=== PATIENT | male | born 1935 | race Caucasian/White ===

== ENCOUNTER 2023-09-11 18:09 | Inpatient (IN) ==
[~2023-09-11 18:09] MED LIST: Heparin 1,000 UNIT/ML 10 ml (10,000 UNITS) CATHLAB/DIALYSIS ONE; Heparin 2 UNITS/ML 1000 mls 3,000 ML IV ONE; Lidocaine 1% MPF 5 ML VIAL ONE; Midazolam 5 mg/5 ml VIAL 1 mg/ml 5 ml VIAL (5 mg) ONE; Rocuronium 50 mg VIAL 10 mg/ml 5 ml VIAL (50 mg) ONE; VERAPAMIL 2.5 MG/ML 2 ML VIAL ** 5 mg/2 ml ONE; fentaNYL 250 mcg/5 ml 50 MCG/ML 5 ml VIAL (250 MCG) ONE; nitroGLYCERIN DRIP 25,000 MCG/250 ML BTL ONE
[2023-09-11] MEDS ORDERED: Iohexol 350 (CONTRAST) 200 ML MDV IV ONE (18:40)
[2023-09-11] MEDS ORDERED: Bivalirudin 250 MG VIAL ONE ×2 (18:42→19:39)
[2023-09-11 18:46] LABS: ABS Monocytes 1.3 10^3/uL (0.0-1.1); ABS Neutrophils 13.2 10^3/uL (1.5-7.6); Hematocrit 33.5 % (38-53); Hemoglobin 11.4 g/dL (13.2-16.3); Lymphocyte % 6.3 %; Mean Corpuscular Hemoglobin 32.6 pg (27-33); Mean Corpuscular Hgb Conc 33.9 g/dL (31-36); Mean Corpuscular Volume 96.1 fL (80-97); Mean Platelet Volume 9.3 fL (7.5-11.2); Platelet Count 251 10^3/uL (150-450); Red Blood Count 3.49 10^6/uL (4.06-5.63); Red Cell Distribution Width 13.9 % (12-17); White Blood Count 15.5 10^3/uL (3.6-10.2)
[2023-09-11 19:06] LABS: Activated Partial Thrombo Time 189.9 seconds (26.0-38.0)
[2023-09-11 19:10] LABS: INR 1.06 (0.83-1.13)
[2023-09-11 19:17] LABS: High Sens Troponin Baseline > 24000 pg/mL (<20)
[2023-09-11 19:40] LABS: Magnesium 1.8 mg/dL (1.9-2.7)
[2023-09-11 19:47] LABS: Anion Gap 8 mmol/L (2-16); Blood Urea Nitrogen 19 mg/dL (6-24); CO2 Carbon Dioxide 22 mmol/L (22-32); Chloride 86 mmol/L (101-111); Creatinine, Serum 1.12 mg/dL (0.67-1.17); Glucose 125 mg/dL (70-100); Potassium 5.2 mmol/L (3.5-5.0); eGFR CKD-EPI 64.4 (>60)
[2023-09-11 19:48] LABS: ALT 32 U/L (7-52); AST 160 U/L (13-39); Albumin 4.1 g/dL (3.2-5.2); Albumin/Globulin Ratio 1.8 (1-3); Alkaline Phosphatase 75 U/L (35-149); Calcium 8.9 mg/dL (8.6-10.3); Globulin 2.3 g/dL (2-4); Sodium 116 mmol/L (135-145); Total Bilirubin 0.8 mg/dL (0.2-1.0); Total Protein 6.4 g/dL (6.4-8.9)
[2023-09-11] MEDS ORDERED: Iohexol 350 (CONTRAST) 100 ML PAK IV ONE (20:24)
[2023-09-11] MEDS ORDERED: Propofol 10 mg/ml 100 ML BTL 1,000 MG/100 ML BTL ONE (20:35)
[2023-09-11] MEDS ORDERED: Midazolam PREMIXBAG 1 MG/ML NS 100 ML IV ONE (20:35)
[2023-09-11] MEDS ORDERED: hydrALAZINE 20 mg/ml 1 ML Vial IV ONE (20:50)
[2023-09-11] MEDS ORDERED: Heparin DRIP 25,000 UNITS BAG 25,000 UNITS/250 ML BAG IV ONE (21:21)
[2023-09-11] MEDS ORDERED: Heparin 2 UNITS/ML 1000 mls 1,000 ML IV ONE (21:22)
[2023-09-11] MEDS ORDERED: fentaNYL 250 mcg/5 ml 50 MCG/ML 5 ml VIAL (250 MCG) ONE (21:47)
[2023-09-11 22:29] LABS: PCO2 Arterial 37 mmHg (35-45); PO2 Arterial 255 mmHg (80-100)
[2023-09-11] MEDS ORDERED: Atropine 0.1 MG/ML 10 ml SYR (1 mg) ONE (22:55)
[2023-09-11] MEDS: Heparin DRIP 25,000 UNITS BAG 25,000 UNITS/250 ML BAG IV SCH ×2 (23:16→23:47)
[2023-09-11] MEDS: Norepinephrine 4 MG/250mL D5W 4,000 MCG/250 ML BAG IV SCH (23:24)
[2023-09-11] MEDS: Propofol 10 mg/ml 100 ML BTL 1,000 MG/100 ML BTL IV SCH (23:24)
[2023-09-11] MEDS: Midazolam PREMIXBAG 1 MG/ML NS 100 ML IV SCH (23:26)
[2023-09-11] MEDS: Norepinephrine 4 MG/250mL D5W 4,000 MCG/250 ML BAG IV ONE (23:28)
[2023-09-11] MEDS ORDERED: Heparin 5000 UNITS/ML 1 mL VIAL IV SCH ×2 (23:45)
[2023-09-11 23:49] LABS: ABS Lymphocytes 0.7 10^3/uL (1.0-4.8); ABS Monocytes 1.2 10^3/uL (0.0-1.1); ABS Neutrophils 12.7 10^3/uL (1.5-7.6); ABS Nucleated RBC 0.01 10^3/ul; Hematocrit 30.3 % (38-53); Hemoglobin 10.3 g/dL (13.2-16.3); Lymphocyte % 4.8 %; Mean Corpuscular Hemoglobin 32.7 pg (27-33); Mean Corpuscular Hgb Conc 33.9 g/dL (31-36); Mean Corpuscular Volume 96.6 fL (80-97); Mean Platelet Volume 8.4 fL (7.5-11.2); Platelet Count 231 10^3/uL (150-450); Red Blood Count 3.13 10^6/uL (4.06-5.63); Red Cell Distribution Width 14.2 % (12-17); White Blood Count 14.6 10^3/uL (3.6-10.2)
[2023-09-12 00:37] LABS: Creatinine, Serum 1.06 mg/dL (0.67-1.17); eGFR CKD-EPI 68.8 (>60)
[2023-09-12 00:45] LABS: Creatinine, Serum 1.07 mg/dL (0.67-1.17); Magnesium 1.9 mg/dL (1.9-2.7); Potassium 4.4 mmol/L (3.5-5.0)
[2023-09-12] MEDS: Chlorhexidine MOUTHWASH 0.12% 15 ML UDC SWISH SPIT SCH (03:41)
[2023-09-12 06:03] LABS: Hematocrit 31.3 % (38-53); Hemoglobin 10.7 g/dL (13.2-16.3); Mean Corpuscular Hemoglobin 32.8 pg (27-33); Mean Corpuscular Hgb Conc 34.2 g/dL (31-36); Mean Platelet Volume 8.8 fL (7.5-11.2); Platelet Count 264 10^3/uL (150-450); Red Blood Count 3.26 10^6/uL (4.06-5.63); Red Cell Distribution Width 13.8 % (12-17); White Blood Count 19.5 10^3/uL (3.6-10.2)
[2023-09-12 06:19] LABS: Calcium 8.2 mg/dL (8.6-10.3); Creatinine, Serum 0.9 mg/dL (0.67-1.17); Magnesium 1.8 mg/dL (1.9-2.7); Potassium 4.5 mmol/L (3.5-5.0); eGFR CKD-EPI 83.7 (>60)
[2023-09-12 06:33] VITALS: BP 129/76
[2023-09-12 06:40] LABS: Osmolality Serum 255 mOsm/kg (275-295)
[2023-09-12 07:34] LABS: ABS Lymphocytes 0.8 10^3/uL (1.0-4.8); ABS Monocytes 1.9 10^3/uL (0.0-1.1); ABS Neutrophils 16.8 10^3/uL (1.5-7.6); ABS Nucleated RBC 0.01 10^3/ul; Nucleated Red Blood Cells % 0.1 %/100WBC (0.0-0.8)
[2023-09-12] MEDS: Magnesium Sulfate 2 gm BAG 2 GM/50 ML BAG IVPB ONE (08:23)
[2023-09-12] MEDS ORDERED: Heparin 2 UNITS/ML 1000 mls 1,000 ML IV ONE ×2 (08:56→09:19)
[2023-09-12] MEDS ORDERED: Iohexol 350 (CONTRAST) 100 ML PAK IV ONE (09:28)
== END 2023-09-12 10:00 | DRG 270 ==
LOC: ED 18:09 → ICU 18:30 → EDHOLD 22:26 → ICU 22:32
PROVIDERS: ADMIT Student in an Organized Health Care Education/Training Program; ATTEND Student in an Organized Health Care Education/Training Program